=== PATIENT | female | born 1965 | race Caucasian/White ===

== ENCOUNTER → 2023-07-21 16:43 | Outpatient (REF) | payer BC, SELFPAY | LOC: WDC 16:43 | PROVIDERS: ATTENDING PHYSICIAN Obstetrics & Gynecology Gynecology; FAMILY PHYSICIAN Internal Medicine | DX: Z12.31 Encounter for screening mammogram for malignant neoplasm of breast (principal); Z01.419 Encounter for gynecological examination (general) (routine) without abnormal findings | CPT/HCPCS: 77063; 77067 ==

== ENCOUNTER 2024-04-07 11:12 | Emergency (ER) | payer BC, SELFPAY ==
[2024-04-07 11:21] VITALS: BP 142/103
[2024-04-07 11:55] LABS: % Basophils 0.4 % (0-2); % Eosinophils 1.1 % (0-6); % Immature Granulocytes 1.1 % (0-0.5); % Lymphocytes 28.5 % (20.5-51.1); % Monocytes 6.4 % (1.7-9.3); % Neutrophils 62.5 % (42.2-75.2); Absolute Eosinophils 0.1 10^3/uL (0-0.7); Absolute Immature Granulocytes 0.1 10^3/uL (0-0.05); Absolute Lymphocytes 1.5 10^3/uL (1.2-3.4); Absolute Monocytes 0.3 10^3/uL (0.1-0.6); Absolute Neutrophils 3.3 10^3/uL (1.4-6.5); Hematocrit 39.2 % (37.0-47.0); Hemoglobin 13.5 g/dL (12.0-16.0); Mean Corp Hgb Conc. 34.4 g/dL (33.0-37.0); Mean Corpuscular Hgb 31.4 pg (27.0-31.0); Mean Corpuscular Volume 91.2 fL (81.0-99.0); Nucleated Red Blood Cells % 0 %; Platelet Count 305 10^3/uL (130-400); White Blood Cell Count 5.3 10^3/uL (4.8-10.8)
[2024-04-07 12:04] LABS: ALT (SGPT) 21 U/L (0-35); AST (SGOT) 27 U/L (14-36); Albumin 4.6 g/dl (3.5-5.0); Alkaline Phosphatase 83 U/L (38-126); Blood Urea Nitrogen 10 mg/dl (7-17); Calcium 9.4 mg/dl (8.4-10.2); Carbon Dioxide 24 mmol/L (22-30); Chloride 102 mmol/L (98-107); Glucose 178 mg/dl (70-99); Lipase 93 U/L (23-300); Potassium 3.5 mmol/L (3.5-5.1); Sodium 141 mmol/L (135-145); Total Bilirubin 0.8 mg/dl (0.2-1.3); Total Protein 7.2 g/dl (6.3-8.2); eGFR > 60.00
[2024-04-07] MEDS: TORADOL 15 MG IV (12:46)
--- NOTE | 2024-04-07 13:27 | ED.GENMED ---
History of Present Illness
General
Chief Complaint: Abdominal Pain
Time Seen by Provider: 04/07/24 12:06
History of Present Illness
History of Present Illness:
58-year-old female with history of high blood pressure presenting to the emergency department for right-sided abdominal pain. Patient reports symptoms for the past 3 days. She also reports subjective fevers. Pain has been worsening since onset.
She denies nausea without vomiting. She has had decreased appetite. Denies urinary complaints. Reports diarrhea. Notes history of , otherwise denies abdominal surgeries. Denies chest pain or difficulty breathing. Denies additional
acute medical complaint
Past History
Past History
ED Past Medical History: HTN, Other (lumbar stenosis) and Other (Unprovoked DVT)
ED Past Surgical History: and Gynecological (tubal ligation)
Social History
Tobacco: Non-smoker
Alcohol: None
Drug: None
Living: with family
Employment: Employed
Phy Exam
Physical Exam
Physical Exam:
General: Well-appearing, no clinical signs of dehydration, nontoxic and in no acute distress
HEENT: protecting airway
Neck: appears supple
CV: Normal heart rate
Resp: No accessory muscle use, no increased work of breathing
Abd: Soft and non-distended, focal reproducible tenderness to the right lower quadrant. No rebound or guarding
Extremities: No deformities, no swelling
Neuro: alert, no focal neurologic deficit
: deferred
Rectal: deferred
Psych: Normal affect
Skin: Intact
Course
Orders/Labs/Results
Orders:
Orders
04/07/24 11:32
Complete Blood Count/With Diff Urgent
Comprehensive Metabolic Panel Urgent
Lipase Urgent
04/07/24 12:41
CT Abd/pelvis W Iv Cont Urgent
Comment:
Reason For Exam: RKQ pain
Ketorolac [Toradol] 15 mg IV NOW STA
04/07/24 15:42
Amoxicillin 875 mg/Clav 125 mg [Augmentin 875 mg/125 mg] 1 tablet PO NOW STA
Abnormal Lab Results
04/07/24
11:32
MCH 31.4 H pg
(27.0-31.0)
Abs Immat Gran (auto) 0.1 H 10^3/uL
(0-0.05)
Immature Gran % 1.1 H %
(0-0.5)
Glucose 178 H mg/dl
(70-99)
04/07/24 11:32
04/07/24 11:32
Vital Signs
Initial and Last Documented VS:
Initial Vital Signs
Temp
98.9 F
04/07/24 11:20
Last Documented Vital Signs
Temp Pulse Resp BP Pulse Ox
98.9 F 80 18 142/103 100
04/07/24 11:21 04/07/24 11:21 04/07/24 11:21 04/07/24 11:21 04/07/24 11:21
MDM/Problems Addressed
MDM/Problems Addressed:
58-year-old female with history of hypertension presenting for 3 days of right lower quadrant pain which has been worsening in quality. Vital signs on arrival are significant for hypertension.
On exam patient is well-appearing, no acute distress or discomfort. Patient nontoxic. Focal tenderness to the right lower quadrant of the abdomen so cannot safely exclude acute appendicitis. For this reason we will obtain laboratory analysis and
CT abdominal imaging. Toradol administered for pain.
15:40 - CT is consistent with acute diverticulitis, without complicating features. Patient otherwise remains hemodynamically stable. Feel stable for trial of outpatient therapy. Will start on Augmentin. Otherwise feel stable for discharge.
Strict return precautions communicated and patient verbalized understanding
*Critical Care Note
Total Time (30-74mins, 75-104mins- exclusive of procedures): Not Applicable
ED Attending Note
-
Portions of this chart may have been created with voice recognition software.� Occasional wrong word or��sound alike� substitutions may have occurred due to the inherent limitations of voice recognition software.
Discharge Plan
Departure
Prescriptions:
No Action
metoprolol succinate 50 MG tablet extended release 24 hr
100 mg PO DAILY
kfznqzt-yistuosoqmcus-yqusynfr 1 TABLET tablet
2 tab PO PRN PRN (Reason: pain)
cetirizine 10 MG tablet
10 mg PO DAILY
famotidine 20 MG tablet
20 mg PO DAILY
losartan 25 MG tablet
25 mg PO DAILY
spironolactone 50 MG tablet
50 mg PO DAILY
rosuvastatin 10 MG tablet
10 mg PO QPM
duloxetine 60 MG capsule,delayed release(DR/EC)
60 mg PO DAILY
prednisone 10 MG tablet
10 mg PO .TAPER Qty: 45 0RF
Rx Instructions:
Take 50mg daily x3days, 40mg daily x3days,
30mg daily x3days, 20mg daily x3days,
10mg daily x3days
Referrals:
Allen Mckeon MD [Family Provider] -
Interventions
Interventions:
*Risk Screen - Suicide Last Done: 04/07/24 11:21
*General Assessment Last Done: 04/07/24 11:21
*Neglect/Abuse Screening Last Done: 04/07/24 11:21
FB-Ifskev-Tuecsqvpgb Assessment Last Done: 04/07/24 12:56
Discharge Date and Time
Print Language: DANISH
[2024-04-07] MEDS: AUGMENTIN 875 MG/125 MG 1 TABLET PO (15:53)
== END 2024-04-07 16:35 | disposition home or self-care (01) ==
LOC: EMR 11:12
PROVIDERS: Emergency Medicine; EMERGENCY PHYSICIAN Student in an Organized Health Care Education/Training Program; FAMILY PHYSICIAN Internal Medicine
DX: R10.31 Right lower quadrant pain (principal); I10 Essential (primary) hypertension; Z86.718 Personal history of other venous thrombosis and embolism
CPT/HCPCS: 96374; 99284; 74177; 80053; 83690; 85025; Q9967

== ENCOUNTER 2024-04-25 00:16 | Inpatient (IN) | payer BC, SELFPAY ==
[2024-04-24 20:48] VITALS: BP 169/99
--- NOTE | 2024-04-24 21:15 | ED.GENMED ---
History of Present Illness
General
Chief Complaint: Abdominal Pain
Source: patient
Exam Limitations: none
Time Seen by Provider: 04/24/24 20:58
History of Present Illness
History of Present Illness:
This is a 58 year old female that comes in with c/o abd pain. States that she is being treated for Diverticulitis and this is her second round of antibiotics. states that she is taking Augmentin at this time. States that this was ordered by
Zhen. Stats that she is in severe right lower abd pain. States that she was first here on the . States that she has had a fever, abd pain, nausea, diarrhea. Denies any chills, chest pain, SOB, vomiting, headache, dizziness, urinary burning.
Past History
Past History
ED Past Medical History: Asthma, HTN, Other (lumbar stenosis, Diverticulitis, Migraines, Neck pain, Narcolepsy, Chronic bronchitis, Gastritis, Uterine fibroid) and Other (Unprovoked DVT)
ED Past Surgical History: (X2), Gynecological (tubal ligation) and Other (Spinal surgery)
Social History
Tobacco: Non-smoker
Alcohol: None
Drug: None
Personal:
Living: with family
Employment: Employed
Review of Systems
Review of Systems
All Other Systems: ROS reviewed and negative except as documented in HPI and ROS
Constitutional: Reports fever; Denies chills
EENT: Reports no symptoms
Respiratory: Reports no symptoms; Denies cough or trouble breathing
Cardiac: Reports no symptoms; Denies chest pain
ABD/GI: Reports abdominal pain, nausea and diarrhea; Denies vomiting
: Reports no symptoms; Denies dysuria, frequency or urgency
Musculoskeletal: Reports no symptoms
Skin: Reports no symptoms
Neurological: Reports no symptoms; Denies dizzy or headache
Psychiatric: Reports no symptoms
Phy Exam
General Physical Exam
General Presentation: moderate distress
General age: appears stated age
General Skin: warm and dry
General Habitus: normal
General Mental: alert
General Hydration: dry mucous membranes
ENT Exam
ENT Exam: TM's normal, pharynx normal and neck supple
Eye Exam
Eye Exam: EOMI
Cardiovascular Exam
Cardiovascular Exam: regular rate/rhythm, no edema, no murmur and normal peripheral pulses
Pulmonary Exam
Pulmonary Exam: lungs clear, no respiratory distress, no rales, chest non tender, no crackles, no rhonchi, no wheezing and no cough
Gastrointestinal Exam
Gastrointestinal Exam: normal bowel sounds, soft, no organomegaly, no pulsatile mass, non distended and tender (Right lower abd tenderness with palpation)
Musculoskeletal Exam
Musculoskeletal Exam: full ROM and no edema
Skin Exam
Skin Exam: normal color, warm/dry, no rash and no petechia
Psychiatric Exam
Psychiatric Exam: normal mood/affect
Course
Orders/Labs/Results
Orders:
Orders
04/24/24 21:14
0.9% Sodium Chloride 1000 ml [Nss] 1,000 ml IV BOLUS
HYDROmorphone [Dilaudid] 1 mg IV NOW STA
Ondansetron Injectable [Zofran] 4 mg IV NOW STA
04/24/24 21:15
CT Abd/pelvis W Iv Cont Urgent
Comment:
Reason For Exam: Right sided abd pain
04/24/24 21:27
Complete Blood Count/With Diff Urgent
Comprehensive Metabolic Panel Urgent
Lactic Acid Urgent
Lipase Urgent
Abnormal Lab Results
04/24/24
21:27
RBC 4.13 L 10^6/uL
(4.20-5.40)
MCH 32.2 H pg
(27.0-31.0)
Absolute Neuts (auto) 7.7 H 10^3/uL
(1.4-6.5)
Absolute Monos (auto) 0.7 H 10^3/uL
(0.1-0.6)
Neutrophils % 77.8 H %
(42.2-75.2)
Lymphocytes % 13.1 L %
(20.5-51.1)
Glucose 104 H mg/dl
(70-99)
04/24/24 21:27
04/24/24 21:27
glucose nonfasting. Lactic acid normal at 1.1, Lipase normal at 47
Vital Signs
Initial and Last Documented VS:
Initial Vital Signs
Temp Pulse Resp BP Pulse Ox
99.7 F 81 18 169/99 98
04/24/24 20:48 04/24/24 20:48 04/24/24 20:48 04/24/24 20:48 04/24/24 20:48
Last Documented Vital Signs
Temp Pulse Resp BP Pulse Ox
99.7 F 81 18 169/99 98
04/24/24 20:48 04/24/24 20:48 04/24/24 20:48 04/24/24 20:48 04/24/24 20:48
MDM/Problems Addressed
Differential Diagnosis Includes:
Appendicitis. diverticulitis with abscess
MDM/Problems Addressed:
This is a 58 year old female that comes in with c/o increased abd pain in the right lower abd. States that she has been on Antibiotics and this is the second Round.
Will check labs, give IV medication and IV fluids and get CT scan.
Back into see patient. Explained that her CT shows worsening of the Diverticulitis but there is no free fluid or perforation. Will admit patient for IV antibiotics Hospitalist notified.
Chronic conditions affecting care:
Diverticulitis,
Acute Exacerbation and/or Progression of Chronic Illness:
Diverticulitis
*Radiology
Radiology exam reviewed: radiology read reviewed (CT-Persistent and progressive mild to moderate sigmoid diverticulitis. No perforation or abscess. The appendix is normal. No bowel obstruction. No obstructive uropathy. )
*Pulse Oximetry
Patient hypoxic: no
*EKG
Interpreted by ED Provider?: NA
Rate: EKG- N/A
*Rn First Assistant Interpretation
Rate: Rn First Assistant- N/A
*Critical Care Note
Total Time (30-74mins, 75-104mins- exclusive of procedures): Not Applicable
ED Attending Note
-
Portions of this chart may have been created with voice recognition software.� Occasional wrong word or��sound alike� substitutions may have occurred due to the inherent limitations of voice recognition software.
Discharge Plan
Departure
Patient Disposition: Admit
Date of Disposition: 04/24/24
Time of Disposition: 23:14
Admit to: Med/Surg
Presentation/result/management discussed w/ accepting MD/DO: Hospitalist
Patient with high blood pressure during this ER visit?: Yes
Condition: Good
Covid-19: Not Applicable
Discharge Problem:
Abdominal pain, Diverticulitis
Prescriptions:
No Action
metoprolol succinate 50 MG tablet extended release 24 hr
100 mg PO DAILY
ahwvekz-lddqdtuhnlxwx-dvknbidq 1 TABLET tablet
2 tab PO PRN PRN (Reason: pain)
cetirizine 10 MG tablet
10 mg PO DAILY
famotidine 20 MG tablet
20 mg PO DAILY
losartan 25 MG tablet
25 mg PO DAILY
spironolactone 50 MG tablet
50 mg PO DAILY
rosuvastatin 10 MG tablet
10 mg PO QPM
duloxetine 60 MG capsule,delayed release(DR/EC)
60 mg PO DAILY
prednisone 10 MG tablet
10 mg PO .TAPER Qty: 45 0RF
Rx Instructions:
Take 50mg daily x3days, 40mg daily x3days,
30mg daily x3days, 20mg daily x3days,
10mg daily x3days
amoxicillin-pot clavulanate 875-125 mg tablet
1 tab PO BID 10 Days Qty: 20 0RF
Referrals:
Allen Mckeon MD [Family Provider] -
Interventions
Interventions:
*Risk Screen - Suicide Last Done: 04/24/24 20:48
*General Assessment Last Done: 04/24/24 20:48
*Neglect/Abuse Screening Last Done: 04/24/24 20:48
ED- Fall Risk Assessment Last Done: 04/24/24 21:41
*ED COVID-19 Vaccine History Last Done: 04/24/24 21:35
JS-Kzrkxu-Jesequypym Assessment Last Done: 04/24/24 21:41
Discharge Date and Time
Print Language: KHMER
[2024-04-24] MEDS: DILAUDID 1 MG IV ×2 (21:34→23:19)
[2024-04-24] MEDS: NSS 1000 IV (21:34)
[2024-04-24] MEDS: ZOFRAN 4 MG IV (21:34)
[2024-04-24 21:35] VITALS: BMI 35.5
[2024-04-24 21:42] LABS: % Basophils 0.4 % (0-2); % Immature Granulocytes 0.3 % (0-0.5); % Lymphocytes 13.1 % (20.5-51.1); % Monocytes 7.4 % (1.7-9.3); % Neutrophils 77.8 % (42.2-75.2); Absolute Eosinophils 0.1 10^3/uL (0-0.7); Absolute Lymphocytes 1.3 10^3/uL (1.2-3.4); Absolute Monocytes 0.7 10^3/uL (0.1-0.6); Absolute Neutrophils 7.7 10^3/uL (1.4-6.5); Hematocrit 40.1 % (37.0-47.0); Hemoglobin 13.3 g/dL (12.0-16.0); Mean Corp Hgb Conc. 33.2 g/dL (33.0-37.0); Mean Corpuscular Hgb 32.2 pg (27.0-31.0); Mean Corpuscular Volume 97.1 fL (81.0-99.0); Nucleated Red Blood Cells % 0 %; Platelet Count 253 10^3/uL (130-400); Red Blood Cell Count 4.13 10^6/uL (4.20-5.40); Red Cell Dist. Width 13.1 % (11.5-14.5); White Blood Cell Count 9.9 10^3/uL (4.8-10.8)
[2024-04-24 21:56] LABS: Lactic Acid 1.1 mmol/L (0.7-2.0)
[2024-04-24 21:58] LABS: ALT (SGPT) 33 U/L (0-35); AST (SGOT) 33 U/L (14-36); Albumin 4.5 g/dl (3.5-5.0); Alkaline Phosphatase 86 U/L (38-126); Blood Urea Nitrogen 8 mg/dl (7-17); Carbon Dioxide 26 mmol/L (22-30); Chloride 101 mmol/L (98-107); Estimated Creatinine Clearance 84 ml/min; Glucose 104 mg/dl (70-99); Lipase 47 U/L (23-300); Potassium 4.3 mmol/L (3.5-5.1); Sodium 137 mmol/L (135-145); Total Bilirubin 0.7 mg/dl (0.2-1.3); Total Protein 6.9 g/dl (6.3-8.2); eGFR > 60.00
[2024-04-24] MEDS: LEVAQUIN 100 IV (23:19)
--- NOTE | 2024-04-24 23:29 | EDRN ---
Patient ambulated to the bathroom and back in bed and complained of pain increasing, informed ridge boyd who placed meds to be given and placed patient in for admission, patient aware and medicated.
[2024-04-24 23:52] VITALS: BP 129/87
--- NOTE | 2024-04-25 00:13 | EDRN ---
hospitalist at bedside working on admission
--- NOTE | 2024-04-25 00:18 | HPS.HSE ---
Family Physician
-
Family Physician: Allen Mckeon
Chief Complaint
-
Abdominal pain
History of Present Illness
Patient is a 58-year-old with past medical history significant for hypertension, hyperlipidemia, chloroquine status post spinal surgery presenting to the emergency department with recurrent abdominal pain.
Patient was full seen in the emergency department on April 07 for abdominal pain and was diagnosed with acute diverticulitis at that time. She has sigmoid diverticulitis, uncomplicated and was started on Augmentin. She took 10 days of Augmentin
which ended on April 17. She felt well while she was on Augmentin however post antibiotics the patient symptoms started to recall. She reported abdominal pain and ongoing diarrhea. She received another round of 10 days of Augmentin per her
director state pharmacy however while taking the medications the patient had no improvement in symptoms. She is intermittently tolerating p.o. but continued to have diarrhea and abdominal pain with nausea but no vomiting. She states she had low-grade
temps for her. No chills. She has not felt dizzy or lightheaded. Patient is pending an outpatient colonoscopy for a positive Cologuard screening.
In the emergency department she was hemodynamically stable with a temp of 99.7, blood pressure of 130/87 and pulse of 84. White count was 9 with the rest of the CBC normal. Electrolytes BUN/creatinine were within normal range. She had a CT of the
abdomen pelvis showing persistent and progressive mild to moderate sigmoid diverticulitis without perforation or abscess.
Medical History
Past Medical History
Past Medical History: Reports HTN and Hypercholesterolemia
Past Surgical History: Reports , Gynocological and Orthopedic (Back surgery)
Social History
Tobacco: Non-smoker
Alcohol: None
Drug: None
Personal:
Living: With Family
Employment: Employed
Family History
Family History: Not pertinent
Allergies / Home Medications
Allergies reflects when Allergies were last updated in [facility].
Home Medications with original date entered in [facility]
Allergy/Medication List:
Allergies
Allergy/AdvReac Type Severity Reaction Status Date / Time
topiramate [From Topamax] Allergy Intermediate Unknown Verified 04/07/24 11:24
tetracycline Allergy FULL BODY Verified 04/07/24 11:24
RASH
cats Allergy runny nose Uncoded 11/14/21 14:55
seasonal Allergy runny nose Uncoded 11/14/21 14:55
Home Medications
unolned-xkrqoifgoovde-bkvfdgfy 250 mg-250 mg-65 mg tablet 2 tab PO PRN PRN pain 09/18/14
metoprolol succinate 50 mg tablet,extended release 24 hr 100 mg PO DAILY 09/18/14
cetirizine 10 mg tablet 10 mg PO DAILY 11/14/21
duloxetine 60 mg capsule,delayed release 60 mg PO DAILY 11/14/21
famotidine 20 mg tablet 20 mg PO DAILY 11/14/21
losartan 25 mg tablet 25 mg PO DAILY 11/14/21
prednisone 10 mg tablet 10 mg PO .TAPER #45 tabs 11/14/21
rosuvastatin 10 mg tablet 10 mg PO QPM 11/14/21
spironolactone 50 mg tablet 50 mg PO DAILY 11/14/21
amoxicillin 875 mg-potassium clavulanate 125 mg tablet 1 tab PO BID 10 days #20 tabs 04/07/24
Review of Systems
-
Constitutional: Reports Fever
EENT: Reports No Symptoms
Respiratory: Reports No Symptoms
Cardiac: Reports No Symptoms
Abdomen/GI: Reports Abdominal Pain, Nausea and Diarrhea
: Reports No Symptoms
Musculoskeletal: Reports No Symptoms
Skin: Reports No Symptoms
Neurological: Reports No Symptoms
Endocrine: Reports No Symptoms
Hematologic/Lymphatic: Reports No Symptoms
Psych: Reports No Symptoms
Physical Exam
Vital Signs
Vital Signs
Temp Pulse Resp BP Pulse Ox
99.7 F 84 16 129/87 98
04/24/24 20:48 04/24/24 23:52 04/24/24 23:52 04/24/24 23:52 04/24/24 23:52
Physical Exam
General: Well Developed, Well Nourished, Comfortable and Conversant
HEENT: NormoCephalic, Anicteric, Moist mucous membranes and Atraumatic
Respiratory: Clear
Cardiac: S1/S2 and Regular Rhythm
Breast: Deferred by me
GI: Soft, Non Distended, Normal Bowel Sounds and Tender
Rectal: Deferred by Provider
Genito-urinary: Deferred by me
Musculoskeletal: No Clubbing, No Cyanosis and No Edema
Skin: Warm
Neuro: AO x 3
Hematologic/Lymphatic: No Lymphadenopathy
Psych: Calm
Laboratory Results
-
04/24/24 21:27
04/24/24 21:27
Laboratory Results
Lactic Acid 1.1 mmol/L (0.7-2.0) 04/24/24 21:27
Total Bilirubin 0.7 mg/dl (0.2-1.3) 04/24/24 21:27
AST 33 U/L (14-36) 04/24/24 21:27
ALT 33 U/L (0-35) 04/24/24 21:27
Alkaline Phosphatase 86 U/L (38-126) 04/24/24 21:27
Lipase 47 U/L (23-300) 04/24/24 21:27
Data Reviewed
-
CT Scan: Report Reviewed by me
Lab Data: Labs Reviewed by me
Old Records: Reviewed
Impression/Plan
-
IMPRESSION:
58-year-old with recurrent persistent sigmoid diverticulitis, noncomplicated status post 2 rounds of 10 days of Augmentin. She is currently well-appearing hemodynamically stable and nontoxic. Afebrile, no leukocytosis. CT scan shows progression
of mild to moderate diverticulitis.
PLAN:
Diverticulitis
- admit to med/surg
- clear liquid diet
- continue levofloxacin 750mg daily w/ flagyl 500 q 8
- pain control and antiemetics
- IV fluids as patient has been having diarrhea.
HTN - she has remained hemodynamically stable and not dehydrated
- continue home metoprolol 100, losartan 25 and spironolactone 50
DVT PPX - lovenox sq
Code status - Full code
[2024-04-25] MEDS: FLAGYL 500 MG 100 IV ×4 (00:30→23:20)
[2024-04-25 01:05] VITALS: BP 121/89; BMI 34.9
[2024-04-25] MEDS: DILAUDID 0.5 MG IV ×6 (01:19→21:07)
[2024-04-25] MEDS: LR 1000 IV ×2 (01:19→12:15)
--- NOTE | 2024-04-25 02:20 | PTCARENOTE ---
Patient arrived to unit via stretcher around 00:15 with dx of diverticulitis. Pt AAOX3. Pleasant and cooperative with care. Pain to RLQ 10. Lungs clear. Skin intact. Oriented to unit. Call silva within reach. Patient education on using call silva
for assist out of bed.
[2024-04-25] MEDS: ZOFRAN 4 MG IV (04:29)
[2024-04-25 07:51] VITALS: BP 109/61
[2024-04-25] MEDS: CYMBALTA DELAYED RELEASE 60 MG PO (08:06)
[2024-04-25] MEDS: ZYRTEC 10 MG PO (08:07)
[2024-04-25] MEDS: TOPROL XL 100 MG PO (08:07)
[2024-04-25] MEDS: PEPCID 20 MG PO (08:07)
[2024-04-25] MEDS: ALDACTONE 50 MG PO (08:08)
[2024-04-25] MEDS: COZAAR 25 MG PO (08:08)
[2024-04-25 08:10] LABS: Hematocrit 37.3 % (37.0-47.0); Mean Corp Hgb Conc. 32.2 g/dL (33.0-37.0); Mean Corpuscular Hgb 31.8 pg (27.0-31.0); Mean Corpuscular Volume 98.9 fL (81.0-99.0); Mean Platelet Volume 9.3 fL (7.4-10.4); Platelet Count 241 10^3/uL (130-400); Red Blood Cell Count 3.77 10^6/uL (4.20-5.40); Red Cell Dist. Width 13.4 % (11.5-14.5); White Blood Cell Count 10.9 10^3/uL (4.8-10.8)
[2024-04-25 08:40] LABS: Blood Urea Nitrogen 7 mg/dl (7-17); Calcium 8.4 mg/dl (8.4-10.2); Carbon Dioxide 28 mmol/L (22-30); Chloride 98 mmol/L (98-107); Estimated Creatinine Clearance 83 ml/min; Glucose 105 mg/dl (70-99); Magnesium 1.4 mg/dl (1.6-2.3); Potassium 4.5 mmol/L (3.5-5.1); Sodium 137 mmol/L (135-145); eGFR > 60.00
--- NOTE | 2024-04-25 10:10 | CM ---
Pt seen bedside. Initial assessment completed. CM explained role in the hospital
Pt lives w/ spouse in a 2STH-4 steps to enter the home.
Pt is independent, denies DME use for ambulating or daily functioning
Denies SNF/PT/VN hx. Pt stated she engaged in OP rehab at [facility] center previously.
Denies financial insecurities
Address, point of contact and insurance verified.
PCP: Dr. Allen Mckeon
Pharmacy: [facility]
Per pt, her spouse will transport at d/c
Plan: Home, no anticipated needs
--- NOTE | 2024-04-25 12:14 | W.PN.HOSP.TC ---
Today's Communication/Plan
-
see bold
Assessment / Plan
Assessment / Plan
58-year-old with recurrent persistent sigmoid diverticulitis, noncomplicated status post 2 rounds of 10 days of Augmentin. She is currently well-appearing hemodynamically stable and nontoxic. Afebrile, no leukocytosis. CT scan shows progression
of mild to moderate diverticulitis.
Gen: NAD, AAOx3.
Eyes: EOMI, PERRLA, no scleral icterus.
Neck: supple.
CV: RRR, +S1/S2, no m/r/g.
Resp: CTAB, no rales, wheezes, or rhonchi.
Abd: +BS, soft, RLQ TTP, ND
Skin: No rashes.
Neuro: CN 2-12 intact, non-focal.
Psych: Normal mood and affect.
Acute diverticulitis:
-cont Levaquin/Flagyl
-clears
-pain control and antiemetics
-IVFs
Essential HTN:
-cont BB/losartan/spironolactone with holding parameters
Obesity due to excess calories
FULL/Lovenox
Anticipated Discharge: 24 - 48 hours
Subjective/Interval History
-
Date of Service: April 25, 2024
c/o RLQ pain.
Objective Data
-
Labs:
Laboratory Results
04/25/24
06:41
WBC 10.9 H
Hgb 12.0
Hct 37.3
Plt Count 241
Sodium 137
Potassium 4.5
Chloride 98
Carbon Dioxide 28
BUN 7
Creatinine 0.8
Glucose 105 H
Calcium 8.4
Vital Signs:
Vital Signs
Temp Pulse Resp BP Pulse Ox
99.9 F 80 20 109/61 96
04/25/24 07:51 04/25/24 08:07 04/25/24 07:51 04/25/24 08:07 04/25/24 08:00
I&O
04/24/24 04/25/24 04/26/24
06:59 06:59 06:59
Intake Total 1700 / 1700
Balance 1700 / 1700
[2024-04-25] MEDS: TYLENOL 650 MG PO ×3 (12:20→21:07)
[2024-04-25 15:45] VITALS: BP 101/64
[2024-04-25] MEDS: LOVENOX 40 MG SC (17:44)
[2024-04-25] MEDS: MIRALAX 17 GRAMS PO (17:44)
[2024-04-25] MEDS: CRESTOR 10 MG PO (17:45)
--- NOTE | 2024-04-25 18:18 | PTCARENOTE ---
Patient reporting abd discomfort and feeling like bladder isn't completely empty after voids, requesting to have IVF paused as she feels that is contributing to it. PVR 5ml. Pt also complaining of constipation (LBM 04/24). PRN Miralax given.
Educated pt that it does not appear she is retaining urine and the IVF may help her to pass a BM and prevent dehydration. Pt stating that she is 'puffy' and does not want the fluids running at this time. Fluids paused, will pass on to tire mold tester
nurse. Plan of care ongoing.
[2024-04-25] MEDS: AMBIEN 10 MG PO (21:02)
[2024-04-25] MEDS: LR IV (21:45)
[2024-04-25] MEDS: LEVAQUIN 150 IV (21:46)
[2024-04-25 23:41] VITALS: BP 106/57
[2024-04-26] MEDS: DILAUDID 0.5 MG IV ×4 (00:32→19:07)
[2024-04-26 07:41] VITALS: BP 110/59
[2024-04-26] MEDS: COZAAR 25 MG PO (08:40)
[2024-04-26] MEDS: PEPCID 20 MG PO (08:40)
[2024-04-26] MEDS: FLAGYL 500 MG 100 IV ×3 (08:41→23:51)
[2024-04-26] MEDS: TOPROL XL 100 MG PO (08:41)
[2024-04-26] MEDS: ALDACTONE 50 MG PO (08:41)
[2024-04-26] MEDS: ZYRTEC 10 MG PO (08:41)
[2024-04-26] MEDS: CYMBALTA DELAYED RELEASE 60 MG PO (08:41)
[2024-04-26] MEDS: TYLENOL 650 MG PO ×2 (08:51→14:54)
[2024-04-26] MEDS: LR IV (08:54)
--- NOTE | 2024-04-26 09:46 | W.PN.HOSP.TC ---
Today's Communication/Plan
-
see bold
Assessment / Plan
Assessment / Plan
58-year-old with recurrent persistent sigmoid diverticulitis, noncomplicated status post 2 rounds of 10 days of Augmentin. She is currently well-appearing hemodynamically stable and nontoxic. Afebrile, no leukocytosis. CT scan shows progression
of mild to moderate diverticulitis.
Gen: NAD, AAOx3.
Eyes: EOMI, PERRLA, no scleral icterus.
Neck: supple.
CV: remains RRR, +S1/S2, no m/r/g.
Resp: remains CTAB, no rales, wheezes, or rhonchi.
Abd: +BS, soft, RLQ TTP (slightly improved from yesterday), ND
Skin: No rashes.
Neuro: CN 2-12 intact, non-focal.
Psych: Normal mood and affect.
CT A/P: Persistent and progressive mild to moderate sigmoid diverticulitis. No perforation or abscess. The appendix is normal. No bowel obstruction. No obstructive uropathy.
Acute diverticulitis:
-cont Levaquin/Flagyl
-clears
-pain control and antiemetics
Essential HTN:
-cont BB/losartan/spironolactone with holding parameters
Obesity due to excess calories
FULL/Lovenox
Anticipated Discharge: 24 - 48 hours
Subjective/Interval History
-
Date of Service: April 26, 2024
No new complaints.
Objective Data
-
Vital Signs:
Vital Signs
Temp Pulse Resp BP Pulse Ox
99.9 F 82 20 110/59 91
04/26/24 07:41 04/26/24 07:41 04/26/24 07:41 04/26/24 07:41 04/26/24 07:41
I&O
04/25/24 04/26/24 04/27/24
06:59 06:59 06:59
Intake Total 1700 / 1700 2990 / 2990
Balance 1700 / 1700 2990 / 2990
--- NOTE | 2024-04-26 10:20 | VATNOTE ---
right AC PIV removed overnight by scale clerk VAT staff. pt requested d/t irritation/discomfort.
[2024-04-26 15:05] VITALS: BP 95/52
[2024-04-26] MEDS: LOVENOX 40 MG SC (17:28)
[2024-04-26] MEDS: CRESTOR 10 MG PO (17:28)
[2024-04-26] MEDS: LEVAQUIN 150 IV (21:05)
[2024-04-26] MEDS: AMBIEN 10 MG PO (21:05)
[2024-04-26 23:06] VITALS: BP 104/60
[2024-04-27] MEDS: TYLENOL 650 MG PO ×3 (01:03→15:41)
--- NOTE | 2024-04-27 04:05 | DOWNTIME ---
There was a [employer] Client [employer] Worker Downtime on 04/27/2024 from 0100 to 04/27/2024 at 0350. Downtime documentation of patient's care, including medication administrations, has been reconciled in the electronic record per guidelines. Refer to the
patient's paper chart under the miscellaneous tab to see printed paper medication records and downtime forms.
[2024-04-27 07:00] VITALS: BP 115/76
[2024-04-27] MEDS: DILAUDID 0.5 MG IV ×4 (07:23→21:14)
[2024-04-27] MEDS: ALDACTONE 50 MG PO (08:37)
[2024-04-27] MEDS: PEPCID 20 MG PO (08:37)
[2024-04-27] MEDS: CYMBALTA DELAYED RELEASE 60 MG PO (08:38)
[2024-04-27] MEDS: TOPROL XL 100 MG PO (08:38)
[2024-04-27] MEDS: FLAGYL 500 MG 100 IV ×2 (08:38→15:33)
[2024-04-27] MEDS: ZYRTEC 10 MG PO (08:38)
[2024-04-27] MEDS: COZAAR 25 MG PO (08:38)
--- NOTE | 2024-04-27 09:27 | W.PN.HOSP.TC ---
Today's Communication/Plan
-
see bold
Assessment / Plan
Assessment / Plan
58-year-old with recurrent persistent sigmoid diverticulitis, noncomplicated status post 2 rounds of 10 days of Augmentin. She is currently well-appearing hemodynamically stable and nontoxic. Afebrile, no leukocytosis. CT scan shows progression
of mild to moderate diverticulitis.
Gen: NAD, AAOx3.
Eyes: EOMI, PERRLA, no scleral icterus.
Neck: supple.
CV: continues to remain RRR, +S1/S2, no m/r/g.
Resp: continues to remain CTAB, no rales, wheezes, or rhonchi.
Abd: +BS, soft, RLQ TTP (slightly improved from yesterday but pt just received analgesic), ND
Skin: No rashes.
Neuro: CN 2-12 intact, non-focal.
Psych: Normal mood and affect.
CT A/P: Persistent and progressive mild to moderate sigmoid diverticulitis. No perforation or abscess. The appendix is normal. No bowel obstruction. No obstructive uropathy.
Acute diverticulitis:
-cont Levaquin/Flagyl
-clears
-pain control and antiemetics
-CRS following
Essential HTN:
-cont BB/losartan/spironolactone with holding parameters
Obesity due to excess calories
FULL/Lovenox
Anticipated Discharge: > 48 hours
Subjective/Interval History
-
Date of Service: April 27, 2024
Abdominal pain slightly improved from yesterday.
Objective Data
-
Vital Signs:
Vital Signs
Temp Pulse Resp BP Pulse Ox
99.7 F 73 18 115/76 96
04/26/24 23:06 04/26/24 23:06 04/26/24 23:06 04/27/24 08:37 04/26/24 23:06
I&O
04/26/24 04/27/24 04/28/24
06:59 06:59 06:59
Intake Total 2990 / 2990 2270 / 2270
Balance 2990 / 2990 2270 / 2270
--- NOTE | 2024-04-27 11:48 | CON.CRS ---
Consultation
-
Date/Time Consultation Requested: 04/27/2024, 08:01
Date/Time Consultation Performed: 04/27/2024, 08:45
Requesting Provider: Korey Coyle MD
Performing Provider: Willy Tripathi MD
Reason for Consultation: diverticulitis
Medical History
-
Chief Complaint: abdominal pain
History of Present Illness:
58-year-old female presents to [facility] on 04/25/2024 complaining of abdominal pain. The patient had been seen in our ER on 04/07/2024 for similar pain and was diagnosed with sigmoid diverticulitis and discharged from the ER with an
outpatient course of Augmentin. She states that she improved with the antibiotics but as soon as she stopped the course, the pain came back more severe. It started about 5 days ago. She denies nausea or vomiting. She has had loose stools for
about 1 month. She has not been eating solid foods much in the past several weeks. Her stools are nonbloody. This is her first attack of sigmoid diverticulitis. She has not had a previous colonoscopy. She had a recent positive Cologuard and is
scheduled for colonoscopy in the future. She has a history of unprovoked DVTs and failed Xarelto. Her prior abdominal surgeries include 2 C-sections and a tubal ligation.
Her initial white blood cell count was 10.9 and she has not had blood work since. CT of the abdomen and pelvis shows persistent and progressive mild to moderate sigmoid diverticulitis with no perforation or abscess. She was started on Levaquin and
Flagyl. Given these findings, we have been consulted for further surgical opinion.
Past Medical History
Past Medical History: HTN and Hypercholesterolemia
Past Surgical History: , Gynecological and Orthopedic
Social History
Tobacco: Non-Smoker
Alcohol: None
Drug: None
Personal:
Family History
Family History: Reviewed & Not Pertinent
Allergies / Home Medications
Allergy/AdvReac Type Severity Reaction Status Date / Time
topiramate [From Topamax] Allergy Intermediate Unknown Verified 04/07/24 11:24
tetracycline Allergy FULL BODY Verified 04/07/24 11:24
RASH
cats Allergy runny nose Uncoded 11/14/21 14:55
seasonal Allergy runny nose Uncoded 11/14/21 14:55
�Medication �Instructions �Recorded �Confirmed �Type
glezyjv-doczondfejbww-fcwrftoh 250 2 tab PO DAILY Headache 09/18/14 04/25/24 History
mg-250 mg-65 mg tablet
metoprolol succinate 50 mg 100 mg PO DAILY Blood Pressure 09/18/14 04/25/24 History
tablet,extended release 24 hr
cetirizine 10 mg tablet 10 mg PO DAILY Allergies 11/14/21 04/25/24 History
duloxetine 60 mg capsule,delayed 60 mg PO DAILY Depression 11/14/21 04/25/24 History
release
famotidine 20 mg tablet 20 mg PO DAILY Gastrointestinal 11/14/21 04/25/24 History
Issue
losartan 25 mg tablet 25 mg PO DAILY Blood Pressure 11/14/21 04/25/24 History
rosuvastatin 10 mg tablet 10 mg PO DAILY High Cholesterol 11/14/21 04/25/24 History
spironolactone 50 mg tablet 50 mg PO DAILY Fluid 11/14/21 04/25/24 History
Retention/Swelling
amoxicillin 875 mg-potassium 1 tab PO BID 10 days #20 tabs 04/07/24 04/25/24 Rx
clavulanate 125 mg tablet
zolpidem 10 mg tablet (Ambien) 10 mg PO HS Sleep 04/25/24 04/25/24 History
Review of Systems
-
History Source: Patient
Abdomen/GI: Abdominal Pain and Diarrhea
A 10 point review of systems was completed, and was negative except as per HPI.
Physical Exam
Vital Signs
Temp 98.6 F 04/27/24 07:00
Pulse 73 04/27/24 07:00
Resp Rate 19 04/27/24 07:00
Blood pressure 115/76 04/27/24 08:37
SaO2 96 04/27/24 07:00
Body Mass Index (BMI) 34.9
Lab Results / Allergies
04/25/24 06:41
04/25/24 06:41
WBC 10.9 10^3/uL (4.8-10.8) H 04/25/24 06:41
Hgb 12.0 g/dL (12.0-16.0) 04/25/24 06:41
Hct 37.3 % (37.0-47.0) 04/25/24 06:41
Plt Count 241 10^3/uL (130-400) 04/25/24 06:41
Abs Immat Gran (auto) 0.0 10^3/uL (0-0.05) 04/24/24 21:27
Neutrophils % 77.8 % (42.2-75.2) H 04/24/24 21:27
Allergy/AdvReac Type Severity Reaction Status Date / Time
topiramate [From Topamax] Allergy Intermediate Unknown Verified 04/07/24 11:24
tetracycline Allergy FULL BODY Verified 04/07/24 11:24
RASH
cats Allergy runny nose Uncoded 11/14/21 14:55
seasonal Allergy runny nose Uncoded 11/14/21 14:55
Physical Exam
General: Well Developed, Well Nourished and No Apparent Distress
GI: Soft, Tender (Suprapubic/right lower quadrant moderate) and Distended (Mild)
Skin: Warm and Dry
Neuro: AO x 3
Psych: Calm
Data Reviewed
-
CT Scan: Image Personally Visualized and interpreted, Report Reviewed by me and Discussed with Patient
Labs: Labs Reviewed by me, Discussed with Physician and Discussed with Patient
Old Records: Reviewed
Assessment / Plan
-
Assessment: 58-year-old female with uncomplicated sigmoid diverticulitis, first attack
-Continue on clears today given her pain
-Trend blood work
-Discontinue bowel regimen
-Continue IV antibiotics
-Discussed CT with patient. If she were to worsen she would require a colectomy with colostomy creation.
-She will need an eventual colonoscopy in several weeks
--- NOTE | 2024-04-27 14:54 | CM ---
Chart reviewed. Plan of care ongoing.
CRS following
CM will cont to follow for d/c planning
Plan: Home; no anticipated needs
[2024-04-27 15:00] VITALS: BP 121/68
[2024-04-27 15:52] LABS: C-Reactive Protein < 5.00 mg/L (0.0-10.00)
[2024-04-27] MEDS: LOVENOX 40 MG SC (17:25)
[2024-04-27] MEDS: CRESTOR 10 MG PO (17:26)
[2024-04-27] MEDS: LEVAQUIN 150 IV (21:14)
[2024-04-27] MEDS: AMBIEN 10 MG PO (21:14)
[2024-04-27 23:15] VITALS: BP 131/82
[2024-04-28] MEDS: FLAGYL 500 MG 100 IV ×3 (00:27→15:35)
[2024-04-28] MEDS: DILAUDID 0.5 MG IV ×5 (02:03→21:01)
[2024-04-28 06:37] LABS: Blood Urea Nitrogen 6 mg/dl (7-17); Calcium 8.5 mg/dl (8.4-10.2); Carbon Dioxide 28 mmol/L (22-30); Chloride 101 mmol/L (98-107); Estimated Creatinine Clearance 95 ml/min; Glucose 91 mg/dl (70-99); Sodium 138 mmol/L (135-145); eGFR > 60.00
[2024-04-28 07:00] VITALS: BP 103/66
[2024-04-28 07:55] LABS: Hemoglobin 10.6 g/dL (12.0-16.0); Mean Corp Hgb Conc. 32.1 g/dL (33.0-37.0); Mean Corpuscular Volume 99.7 fL (81.0-99.0); Mean Platelet Volume 8.9 fL (7.4-10.4); Platelet Count 201 10^3/uL (130-400); Red Blood Cell Count 3.31 10^6/uL (4.20-5.40); Red Cell Dist. Width 13.3 % (11.5-14.5); White Blood Cell Count 6.9 10^3/uL (4.8-10.8)
[2024-04-28] MEDS: ZYRTEC 10 MG PO (08:07)
[2024-04-28] MEDS: PEPCID 20 MG PO (08:07)
[2024-04-28] MEDS: CYMBALTA DELAYED RELEASE 60 MG PO (08:07)
[2024-04-28] MEDS: COZAAR 25 MG PO (08:08)
[2024-04-28] MEDS: TOPROL XL 100 MG PO (08:08)
[2024-04-28] MEDS: ALDACTONE 50 MG PO (08:08)
--- NOTE | 2024-04-28 08:28 | W.PN.HOSP.TC ---
Today's Communication/Plan
-
See bold
Assessment / Plan
Assessment / Plan
Gen: Remains NAD, AAOx3.
Eyes: Remains EOMI, PERRLA, no scleral icterus.
Neck: supple.
CV: RRR, +S1/S2, no m/r/g.
Resp: CTAB, no rales, wheezes, or rhonchi.
Abd: +BS, soft, RLQ TTP, ND
Skin: No rashes.
Neuro: CN 2-12 intact, non-focal.
Psych: Normal mood and affect.
CT A/P: Persistent and progressive mild to moderate sigmoid diverticulitis. No perforation or abscess. The appendix is normal. No bowel obstruction. No obstructive uropathy.
Acute diverticulitis:
-cont Levaquin/Flagyl
-clears
-pain control and antiemetics
-CRS following, no surgery indicated at this time
-Of note, C. difficile negative
Essential HTN:
-cont BB/losartan/spironolactone with holding parameters
Obesity due to excess calories
FULL/Lovenox
Anticipated Discharge: > 48 hours
Subjective/Interval History
-
Date of Service: April 28, 2024
Patient reports abdominal pain is slightly improved from yesterday.
Objective Data
-
Labs:
Laboratory Results
04/28/24 04/28/24
06:00 07:43
WBC Cancelled 6.9
Hgb Cancelled 10.6 L
Hct Cancelled 33.0 L
Plt Count Cancelled 201
Sodium 138
Potassium 4.0
Chloride 101
Carbon Dioxide 28
BUN 6 L
Creatinine 0.7
Glucose 91
Calcium 8.5
Vital Signs:
Vital Signs
Temp Pulse Resp BP Pulse Ox
98.7 F 72 18 103/66 93
04/28/24 07:00 04/28/24 08:08 04/28/24 07:00 04/28/24 08:08 04/28/24 07:00
I&O
04/27/24 04/28/24 04/29/24
06:59 06:59 06:59
Intake Total 2270 / 2270 1080 / 1080
Balance 2270 / 2270 1080 / 1080
[2024-04-28] MEDS: NSS 1000 IV ×2 (09:15→18:21)
--- NOTE | 2024-04-28 10:57 | W.PN.CRS1 ---
Today's Communication / Plan
-
Fulls.
Assessment/Plan
-
Sigmoid diverticulitis.
1. Afebrile. WBC down to 6.9. Continue antibiotics.
2. tolerated clears. Go to fulls.
3. hopefully LRD and home tomorrow.
Subjective Data
Subjective Data
Date of Service: April 28, 2024
Less pain.
Tolerated clears.
Objective Data
-
Vital Signs
Temp Pulse Resp BP Pulse Ox
98.7 F 72 18 103/66 93
04/28/24 07:00 04/28/24 08:08 04/28/24 07:00 04/28/24 08:08 04/28/24 07:00
Intake & Output
04/27/24 04/28/24 04/29/24
06:59 06:59 06:59
Intake Total 2270 / 2270 1080 / 1080
Balance 2270 / 2270 1080 / 1080
Intake:
Oral fluids 0 / 1920 1080 / 1080
IV piggybacks 350 / 350
Other:
Number of approximated MODERATE 3 2
amounts of urine
Lab Results
04/28/24 07:43
04/28/24 06:00
Physical Exam
-
General: No Acute Distress
Chest: Clear
Cardiovascular: Regular Rate & Rhythm
Abdomen: Non Distended and Tender (mild)
[2024-04-28] MEDS: TYLENOL 650 MG PO (12:04)
[2024-04-28 15:00] VITALS: BP 99/67
[2024-04-28] MEDS: CRESTOR 10 MG PO (17:29)
[2024-04-28] MEDS: LOVENOX 40 MG SC (17:29)
[2024-04-28 17:35] VITALS: BP 115/69
--- NOTE | 2024-04-28 20:15 | PTCARENOTE ---
Pt reports that she does not want IV fluids because it worsens her diarrhea and 'I'll be running to the bathroom all night long'. KIAN Carbone notified, and pt asked if she would be agreeable to lowering the IV fluid rate to 50 mL/hr. Pt agreeable to
having fluid rate lowered, order changed by KIAN Carbone to NS at 50 mL/hr.
[2024-04-28] MEDS: LEVAQUIN 150 IV (21:00)
[2024-04-28] MEDS: AMBIEN 10 MG PO (21:01)
[2024-04-28 23:13] VITALS: BP 97/54
[2024-04-29] MEDS: FLAGYL 500 MG 100 IV ×4 (00:03→23:36)
[2024-04-29] MEDS: DILAUDID 0.5 MG IV ×4 (01:53→19:55)
[2024-04-29 07:00] VITALS: BP 111/71
[2024-04-29] MEDS: CYMBALTA DELAYED RELEASE 60 MG PO (07:59)
[2024-04-29] MEDS: COZAAR 25 MG PO (07:59)
[2024-04-29] MEDS: ALDACTONE 50 MG PO (07:59)
[2024-04-29] MEDS: PEPCID 20 MG PO (08:00)
[2024-04-29] MEDS: TOPROL XL 100 MG PO (08:00)
[2024-04-29] MEDS: ZYRTEC 10 MG PO (08:00)
--- NOTE | 2024-04-29 09:25 | W.PN.HOSP.TC ---
Today's Communication/Plan
-
see bold
Assessment / Plan
Assessment / Plan
Gen: Continues to remain NAD, AAOx3.
Eyes: Continues to remain EOMI, PERRLA, no scleral icterus.
Neck: supple.
CV: RRR, +S1/S2, no m/r/g.
Resp: CTAB, no rales, wheezes, or rhonchi.
Abd: Remains +BS, soft, RLQ TTP, ND
Skin: No rashes.
Neuro: CN 2-12 intact, non-focal.
Psych: Normal mood and affect.
CT A/P: Persistent and progressive mild to moderate sigmoid diverticulitis. No perforation or abscess. The appendix is normal. No bowel obstruction. No obstructive uropathy.
Acute diverticulitis:
-cont Levaquin/Flagyl
-advanced to fulls
-pain control and antiemetics
-CRS following, no surgery indicated at this time
-Of note, C. difficile negative
-Due to lack of significant improvement will repeat CT scan of the abdomen pelvis with oral and IV contrast.
Essential HTN:
-cont BB/losartan/spironolactone with holding parameters
Obesity due to excess calories
FULL/Lovenox
Anticipated Discharge: > 48 hours
Subjective/Interval History
-
Date of Service: April 29, 2024
Patient states that she is 'not turning the corner.' Abdominal pain is similar to yesterday.
Objective Data
-
Vital Signs:
Vital Signs
Temp Pulse Resp BP Pulse Ox
98.4 F 67 20 111/71 95
04/29/24 07:00 04/29/24 07:00 04/29/24 07:00 04/29/24 07:00 04/29/24 07:00
I&O
04/28/24 04/29/24 04/30/24
06:59 06:59 06:59
Intake Total 1330 / 1330 1570 / 1570
Balance 1330 / 1330 1570 / 1570
--- NOTE | 2024-04-29 09:29 | W.PN.CRS1 ---
Today's Communication / Plan
-
Continue current measures.
Assessment/Plan
-
Sigmoid diverticulitis.
1. vitals and labs have been ok.
2. still complains of ongoing pain--however not very tender on exam.
3. would continue fulls for now and not advance yet.
4. continue antibiotics.
Subjective Data
Subjective Data
Date of Service: April 29, 2024
Admits pain 'unchanged' on her R.
Tolerating fulls.
Objective Data
-
Vital Signs
Temp Pulse Resp BP Pulse Ox
98.4 F 67 20 111/71 95
04/29/24 07:00 04/29/24 07:00 04/29/24 07:00 04/29/24 07:00 04/29/24 07:00
Intake & Output
04/28/24 04/29/24 04/30/24
06:59 06:59 06:59
Intake Total 1330 / 1330 1570 / 1570
Balance 1330 / 1330 1570 / 1570
Intake:
Oral fluids 1080 / 1080 1320 / 1320
IV piggybacks 250 / 250 250 / 250
Other:
Number of approximated MODERATE 2 2
amounts of urine
Lab Results
04/28/24 07:43
04/28/24 06:00
Physical Exam
-
General: No Acute Distress
Chest: Clear
Cardiovascular: Regular Rate & Rhythm
Abdomen: Tender (mild R sided)
[2024-04-29] MEDS: OMNIPAQUE 50 ML PO (10:55)
--- NOTE | 2024-04-29 13:21 | CM ---
Chart reviewed. Plan of care ongoing.
CRS following
Cont. IV abx
CM will cont to follow for d/c planning
Plan: Home; no anticipated needs
[2024-04-29 15:00] VITALS: BP 116/66
[2024-04-29] MEDS: LOVENOX 40 MG SC (17:36)
[2024-04-29] MEDS: CRESTOR 10 MG PO (17:36)
[2024-04-29] MEDS: NSS IV (18:18)
[2024-04-29] MEDS: TYLENOL 650 MG PO (21:36)
[2024-04-29] MEDS: AMBIEN 10 MG PO (22:34)
[2024-04-29] MEDS: LEVAQUIN 150 IV (22:34)
--- NOTE | 2024-04-29 22:55 | PTCARENOTE ---
Per change of shift report pt is refusing any further IV fluids. IV fluids capped during the day.
[2024-04-29 23:01] VITALS: BP 113/59
[2024-04-30 07:30] VITALS: BP 148/91
[2024-04-30] MEDS: TOPROL XL 100 MG PO (08:17)
[2024-04-30] MEDS: ZYRTEC 10 MG PO (08:17)
[2024-04-30] MEDS: ALDACTONE 50 MG PO (08:17)
[2024-04-30] MEDS: COZAAR 25 MG PO (08:17)
[2024-04-30] MEDS: FLAGYL 500 MG 100 IV (08:18)
[2024-04-30] MEDS: PEPCID 20 MG PO (08:18)
[2024-04-30] MEDS: CYMBALTA DELAYED RELEASE 60 MG PO (08:18)
[2024-04-30 08:26] LABS: % Basophils 0.6 % (0-2); % Eosinophils 5.4 % (0-6); % Immature Granulocytes 0.4 % (0-0.5); % Lymphocytes 24.7 % (20.5-51.1); % Neutrophils 58.9 % (42.2-75.2); Absolute Eosinophils 0.3 10^3/uL (0-0.7); Absolute Lymphocytes 1.1 10^3/uL (1.2-3.4); Absolute Monocytes 0.5 10^3/uL (0.1-0.6); Absolute Neutrophils 2.7 10^3/uL (1.4-6.5); Hematocrit 34.5 % (37.0-47.0); Hemoglobin 11.6 g/dL (12.0-16.0); Mean Corp Hgb Conc. 33.6 g/dL (33.0-37.0); Mean Corpuscular Hgb 32.4 pg (27.0-31.0); Mean Corpuscular Volume 96.4 fL (81.0-99.0); Nucleated Red Blood Cells % 0 %; Platelet Count 232 10^3/uL (130-400); Red Blood Cell Count 3.58 10^6/uL (4.20-5.40); Red Cell Dist. Width 13.2 % (11.5-14.5); White Blood Cell Count 4.6 10^3/uL (4.8-10.8)
--- NOTE | 2024-04-30 09:35 | W.PN.HOSP.TC ---
Today's Communication/Plan
-
see bold
Assessment / Plan
Assessment / Plan
Gen: remains NAD, AAOx3.
Eyes: EOMI, PERRLA, no scleral icterus.
Neck: supple.
CV: RRR, +S1/S2, no m/r/g.
Resp: CTAB, no rales, wheezes, or rhonchi.
Abd: continues to remain +BS, soft, RLQ TTP, ND
Skin: No rashes.
Neuro: remains CN 2-12 intact, non-focal.
Psych: Normal mood and affect.
CT A/P: Persistent and progressive mild to moderate sigmoid diverticulitis. No perforation or abscess. The appendix is normal. No bowel obstruction. No obstructive uropathy.
CT A/P (04/29/24, repeat): There is persistent sigmoid diverticulitis, overall similar in appearance to recent prior CT. There is no evidence of perforation.
Acute diverticulitis:
-cont Levaquin/Flagyl
-advanced to fulls
-pain control and antiemetics
-CRS following, no surgery indicated at this time
-Of note, C. difficile negative
-repeat CT A/P without change/perforation
-c/s ID at the request of Dr. Marin
Essential HTN:
-cont BB/losartan/spironolactone with holding parameters
Obesity due to excess calories
FULL/Lovenox
Anticipated Discharge: > 48 hours
Subjective/Interval History
-
Date of Service: April 30, 2024
No change in abdominal pain.
Objective Data
-
Labs:
Laboratory Results
04/30/24
08:14
WBC 4.6 L
Hgb 11.6 L
Hct 34.5 L
Plt Count 232
Vital Signs:
Vital Signs
Temp Pulse Resp BP Pulse Ox
98.1 F 72 18 148/91 97
04/30/24 07:30 04/30/24 07:30 04/30/24 07:30 04/30/24 07:30 04/30/24 07:30
I&O
04/29/24 04/30/24 05/01/24
06:59 06:59 06:59
Intake Total 1570 / 1570 1550 / 1550 240 / 240
Balance 1570 / 1570 1550 / 1550 240 / 240
--- NOTE | 2024-04-30 09:47 | W.PN.GS2 ---
Addendum entered and electronically signed by Jorden Randall MD 04/30/24 17:56:
Patient seen and examined independently of surgical COBOL DEVELOPER this evening. Agree with documented progress note.
Patient reports persistent pain, fatigue and loose stools
Pain has improved since admission but still significant enough that is uncomfortable
AFVSS
ABD: Soft, nondistended, tender to palpation with voluntary guarding suprapubic and right lower quadrant as well as rebound in these locations
A/P: 58-year-old female with sigmoid diverticulitis with persistent pain but no evidence of bowel perforation, abscess on follow-up CT imaging
Objectively stable and some improvement with current treatment course (CRP, WBC, CT a/p)
Subjectively still with considerable symptoms
No indications for urgent surgical management (sepsis, free perforation, peritonitis, etc.)
Continue current supportive care and colorectal surgical service will return on Thursday to have further discussions with patient regarding potential timing of/consideration of sigmoidectomy if no further subjective improvement
Original Note:
Today's Communication / Plan
-
Continue abx
Assessment / Plan
-
58 yo female presenting with sigmoid diverticulitis noted on CT 04/24. Repeat CT on 04/29 with persistent diverticulitis similar to initial CT. No abscess.
AFVSS
Mild leukopenia
Symptoms persist, not feeling better or worse. No appetite but tolerating liquids thus far without increased symptoms
--ID consulted for ABX management
--Continue FLD for now
--Medical management as per primary team
Subjective Data
-
Date of Service: April 30, 2024
Patient seen and examined at bedside. Notes she is fatigued. Continues with diarrhea, denies blood in stools. No appetite. Denies n/v.
Objective Data
-
Intake and Output
04/29/24 04/30/24 05/01/24
06:59 06:59 06:59
Intake Total 1570 / 1570 1550 / 1550 240 / 240
Balance 1570 / 1570 1550 / 1550 240 / 240
Intake:
Oral fluids 1320 / 1320 1200 / 1200 240 / 240
IV piggybacks 250 / 250 350 / 350
Other:
Number of approximated MODERATE 2 3 1
amounts of urine
Vital Signs
Temp Pulse Resp BP Pulse Ox
98.1 F 72 18 148/91 97
04/30/24 07:30 04/30/24 07:30 04/30/24 07:30 04/30/24 07:30 04/30/24 07:30
Lab Results
04/30/24 08:14
04/28/24 06:00
Calcium 8.5 mg/dl (8.4-10.2) 04/28/24 06:00
Magnesium 1.4 mg/dl (1.6-2.3) L 04/25/24 06:41
Total Bilirubin 0.7 mg/dl (0.2-1.3) 04/24/24 21:27
AST 33 U/L (14-36) 04/24/24 21:27
ALT 33 U/L (0-35) 04/24/24 21:27
Alkaline Phosphatase 86 U/L (38-126) 04/24/24 21:27
Total Protein 6.9 g/dl (6.3-8.2) 04/24/24 21:27
Albumin 4.5 g/dl (3.5-5.0) 04/24/24 21:27
Physical Exam
-
NAD
ABD softly distended, mild to mod tenderness to the RLQ into the pelvis
[2024-04-30] MEDS: NSS 1000 IV (09:58)
[2024-04-30] MEDS: ZOFRAN 4 MG IV ×2 (10:32→16:32)
[2024-04-30 15:20] VITALS: BP 121/70
--- NOTE | 2024-04-30 15:22 | CON.ID ---
Consultation
-
Date/Time Consultation Requested: 04/29/24 16:30
Date/Time Consultation Performed: 04/30/24 15:23
Requesting Provider: Dr Coyle
Performing Provider: Dr Chawla
Reason for Consultation: diverticulitis
Chief Complaint / Past History
Chief Complaint
Abdominal pain
History of Present Illness
Ms Billy is a 58 year old female with history of diverticulitis presenting here 04/25 for recurrent abdomial pain. Issues began 04/07 with abdominal pain, diagnosed with sigmoid diverticulitis, uncomplicated, treated with augmentin x10 days
(finished 04/17), symptoms began to relapse after completign the course with abdominal pain and diarrhea, she had 10 more days of augmentin and during this course reported no imrpovement in abdominal pain or diarrhea, developed low grade Ts, no
chills. Of note + cologuard and pending outpatient colonosocpy.
Represented here 04/25 and has been afebrile since, bp overall stable, wbc on arrival 9.9 today 4.6, hgb 11.6, plt 232, L shift was present on arrival and has now resolved, cr 0.7, crp on arrival <5 on 04/28 170 and yesteday 80, ct 04/24 with IV
contrast: Persistent and progressive mild to moderate sigmoid diverticulitis. No perforation or abscess, 04/29 CT ab/p with IV and oral contrast: persistent diverticulitis, C diff negative, stool culture negative, patient has been on
levofloxacin/metronidazole x6 days, ID is consulted for assistance with management.
Past History
Additional Past Medical History:
HTN, HLD
Additional Past Surgical History:
, Gynocological and Orthopedic (Back surgery)
Allergy History:
topiramate [From Topamax] Allergy (Intermediate, Verified 04/07/24 11:24)
Unknown
tetracycline Allergy (Verified 04/07/24 11:24)
FULL BODY RASH
cats Allergy (Uncoded 11/14/21 14:55)
runny nose
seasonal Allergy (Uncoded 11/14/21 14:55)
runny nose
Medications Reviewed: Yes
Social History
Tobacco: Non-Smoker
Alcohol: None
Drug: None
Family History
Family History: Not Pertinent
Review of Systems
Review of Systems
General: Negative Fever or Chills
All systems: All other systems were reviewed and were negative
Vital Signs
Temp Pulse Resp BP Pulse Ox
98.1 F 72 18 148/91 97
04/30/24 07:30 04/30/24 07:30 04/30/24 07:30 04/30/24 07:30 04/30/24 08:15
Physical Exam
Physical Exam
Constitutional: No Acute Distress
Cardiovascular: Regular Rate and S1/S2; Negative Murmur or Rub
Pulmonary: Clear and Symmetric; Negative Wheezes, Rales or Rhonchi
Gastrointestinal: Soft, Non Tender, Non Distended and Normal Bowel Sounds
Skin: Warm and Dry; Negative Rash or Jaundice
Lab / Diagnostic Study Results
04/30/24 08:14
04/28/24 06:00
Abs Immat Gran (auto) 0.0 10^3/uL (0-0.05) 04/30/24 08:14
Absolute Neuts (auto) 2.7 10^3/uL (1.4-6.5) 04/30/24 08:14
Absolute Lymphs (auto) 1.1 10^3/uL (1.2-3.4) L 04/30/24 08:14
Absolute Monos (auto) 0.5 10^3/uL (0.1-0.6) 04/30/24 08:14
Absolute Basos (auto) 0.0 10^3/uL (0-0.2) 04/30/24 08:14
Immature Gran % 0.4 % (0-0.5) 04/30/24 08:14
Neutrophils % 58.9 % (42.2-75.2) 04/30/24 08:14
Lymphocytes % 24.7 % (20.5-51.1) 04/30/24 08:14
Monocytes % 10.0 % (1.7-9.3) H 04/30/24 08:14
Eosinophils % 5.4 % (0-6) 04/30/24 08:14
Basophils % 0.6 % (0-2) 04/30/24 08:14
Lactic Acid 1.1 mmol/L (0.7-2.0) 04/24/24 21:27
C-Reactive Protein 80.70 mg/L (0.0-10.00) H 04/29/24 06:16
Microbiology Results
Micro:
04/27/24 14:37 Salmonella/Shigella Culture - Final
Feces/Stool No Salmonella, Shigella, Aeromonas or Plesiomonas species
isolated.
Campylobacter Culture - Final
No Campylobacter species isolated.
Shiga Toxin Test - Pending
04/27/24 14:37 C. difficile GDH Antigen & Toxins - Final
Feces/Stool Negative for toxigenic C.difficile
Assessment / Plan
Recurrent Diverticulitis
Obesity
- improvment in pain from 02/08 to 08/08, improving crp, still with malaise and poor appetite; counseled expect 48-72 hours after any medication change to see clinical improvement
- c difficile and routine stool cultures negative
- note 2 previous courses of augmentin
- agree with levofloxacin/metronidazole - switched to oral; changed to BID dosing on the metronidazole given trouble with metallic taste
- some partial improvement in CRP, stable inflammatory changes on CT scan
- recheck CRP thursday
- add fluconazole 400 mg PO qday
- check QTc now and in the AM
[2024-04-30] MEDS: FLAGYL 500 MG PO (15:43)
[2024-04-30] MEDS: CRESTOR 10 MG PO (17:00)
[2024-04-30] MEDS: LOVENOX 40 MG SC (17:00)
[2024-04-30] MEDS: DILAUDID 0.5 MG IV ×2 (17:14→22:09)
[2024-04-30] MEDS: DIFLUCAN 400 MG PO (20:42)
[2024-04-30] MEDS: LEVAQUIN 750 MG PO (20:42)
[2024-04-30] MEDS: AMBIEN 10 MG PO (22:03)
[2024-04-30 23:01] VITALS: BP 133/84
[2024-05-01] MEDS: MONISTAT 7 VAGINAL CREAM 1 APPLIC VAG ×2 (00:31→21:07)
[2024-05-01] MEDS: PEPCID 20 MG PO (07:43)
[2024-05-01] MEDS: ZYRTEC 10 MG PO (07:43)
[2024-05-01] MEDS: ALDACTONE 50 MG PO (07:43)
[2024-05-01] MEDS: CYMBALTA DELAYED RELEASE 60 MG PO (07:43)
[2024-05-01] MEDS: COZAAR 25 MG PO (07:43)
[2024-05-01] MEDS: TOPROL XL 100 MG PO (07:44)
[2024-05-01] MEDS: DIFLUCAN 400 MG PO (07:44)
[2024-05-01] MEDS: FLAGYL 500 MG PO ×2 (07:44→20:25)
[2024-05-01 07:46] VITALS: BP 115/72
[2024-05-01] MEDS: NSS IV (07:50)
[2024-05-01] MEDS: DILAUDID 0.5 MG IV ×2 (09:07→17:13)
--- NOTE | 2024-05-01 10:38 | W.PN.HOSP.TC ---
Today's Communication/Plan
-
see bold
Assessment / Plan
Assessment / Plan
Gen: Continues to remain NAD, AAOx3.
Eyes: EOMI, PERRLA, no scleral icterus.
Neck: supple.
CV: RRR, +S1/S2, no m/r/g.
Resp: CTAB, no rales, wheezes, or rhonchi.
Abd: +BS, soft, NT to light-mod palpation, ND
Skin: No rashes.
Neuro: Continues to remain CN 2-12 intact, non-focal.
Psych: Normal mood and affect.
CT A/P: Persistent and progressive mild to moderate sigmoid diverticulitis. No perforation or abscess. The appendix is normal. No bowel obstruction. No obstructive uropathy.
CT A/P (04/29/24, repeat): There is persistent sigmoid diverticulitis, overall similar in appearance to recent prior CT. There is no evidence of perforation.
Acute diverticulitis:
-cont Levaquin/Flagyl as per ID
-advanced to LR diet as per surgery
-pain control and antiemetics
-CRS following, no surgery indicated at this time
-Of note, C. difficile negative
-repeat CT A/P without change/perforation
Essential HTN:
-cont BB/losartan/spironolactone with holding parameters
Obesity due to excess calories
FULL/Lovenox
Anticipated Discharge: 24 - 48 hours
Subjective/Interval History
-
Date of Service: May 01, 2024
Abdominal pain improved from yesterday.
Objective Data
-
Vital Signs:
Vital Signs
Temp Pulse Resp BP Pulse Ox
97.5 F 68 20 115/72 96
05/01/24 07:46 05/01/24 07:46 05/01/24 07:46 05/01/24 07:46 05/01/24 07:46
I&O
04/30/24 05/01/24 05/02/24
06:59 06:59 06:59
Intake Total 1550 / 1550 1120 / 1520 400 / 400
Balance 1550 / 1550 1120 / 1520 400 / 400
--- NOTE | 2024-05-01 12:15 | W.PN.GS2 ---
Addendum entered and electronically signed by Jorden Randall MD 05/01/24 12:26:
Patient seen and examined with surgical UNIONMELT OPERATOR. Agree with documented progress note with additions noted here.
Patient's son/family at bedside.
Patient is sitting up comfortably in hospital bed.
States subjective improvement over the last 24 hours with some return of her appetite. Continues with generally loose stools.
AFVSS
ABD: Soft, obese, mild tenderness palpation suprapubic and right lower quadrant but less guarding today.
A/P: 58-year-old female with sigmoid diverticulitis
Clinical improvement over the last 24 hours
Low residue dietary challenge
Antibiotics per ID recommendations
[facility]CRS will return to follow patient tomorrow
Original Note:
Today's Communication / Plan
-
LRD
Assessment / Plan
-
58 yo female presenting with sigmoid diverticulitis noted on CT 04/24. Repeat CT on 04/29 with persistent diverticulitis similar to initial CT. No abscess.
AFVSS
Starting to feel a little better, appetite returning and pain improving slowly
Diarrhea secondary to diverticulitis/inflammation persists, c-diff negative
--ID following for ABX management
--Advance to LRD
--CBC in am
--Medical management as per primary team
Subjective Data
-
Date of Service: May 01, 2024
Patient seen and examined at bedside with Dr. Randall. Denies n/v. Tolerating fulls and appetite is returning. She would like to try solid foods now. Pain gradually improving. Still with loose stools.
Objective Data
-
Intake and Output
04/30/24 05/01/24 05/02/24
06:59 06:59 06:59
Intake Total 1550 / 1550 1120 / 1520 400 / 400
Balance 1550 / 1550 1120 / 1520 400 / 400
Intake:
Oral fluids 1200 / 1200 720 / 1120 400 / 400
IV fluids (Total) 300 / 300
IV piggybacks 350 / 350 100 / 100
Other:
Number of approximated MODERATE 3 4 2
amounts of urine
Vital Signs
Temp Pulse Resp BP Pulse Ox
97.5 F 68 20 115/72 96
05/01/24 07:46 05/01/24 07:46 05/01/24 07:46 05/01/24 07:46 05/01/24 07:46
Lab Results
04/30/24 08:14
04/28/24 06:00
Calcium 8.5 mg/dl (8.4-10.2) 04/28/24 06:00
Magnesium 1.4 mg/dl (1.6-2.3) L 04/25/24 06:41
Total Bilirubin 0.7 mg/dl (0.2-1.3) 04/24/24 21:27
AST 33 U/L (14-36) 04/24/24 21:27
ALT 33 U/L (0-35) 04/24/24 21:27
Alkaline Phosphatase 86 U/L (38-126) 04/24/24 21:27
Total Protein 6.9 g/dl (6.3-8.2) 04/24/24 21:27
Albumin 4.5 g/dl (3.5-5.0) 04/24/24 21:27
Physical Exam
-
NAD
ABD ND, mild tenderness to the right suprapubic area/pelvis
--- NOTE | 2024-05-01 13:42 | W.PN.ID1 ---
Date of Service
Date of Service: May 01, 2024
Today's Communication
qtc acceptable
continue current therapies
Assessment / Plan
Recurrent Diverticulitis
Obesity
- improvment in pain from 02/08 to 08/08, improving crp, still with malaise and poor appetite; counseled expect 48-72 hours after any medication change to see clinical improvement
- c difficile and routine stool cultures negative
- note 2 previous courses of augmentin
- agree with levofloxacin/metronidazole
- some partial improvement in CRP, stable inflammatory changes on CT scan
- recheck CRP thursday
- c/w fluconazole 400 mg PO qday
- check QTcs acceptable
Chief Complaint
-: Other (diverticulitis)
Subjective / Review of Systems
afebrile
bp stable
tolerating current therapies
improved abdominal pain
now on standard diet
Vital Signs / Physical Exam
Vital Signs
Vital Signs
Temp Pulse Resp BP Pulse Ox
97.5 F 68 20 115/72 96
05/01/24 07:46 05/01/24 07:46 05/01/24 07:46 05/01/24 07:46 05/01/24 07:46
Physical Exam
Constitutional: No Acute Distress
Cardiovascular: Regular Rate and S1/S2; Negative Murmur or Rub
Pulmonary: Clear and Symmetric; Negative Wheezes or Rales
Gastrointestinal: Soft, Non Tender, Non Distended and Normal Bowel Sounds
Skin: Warm and Dry; Negative Rash or Jaundice
Objective Data
Lab Data
Lab Results
04/30/24 08:14
04/28/24 06:00
Estimated Creat Clear 95 ml/min 04/28/24 06:00
Lactic Acid 1.1 mmol/L (0.7-2.0) 04/24/24 21:27
Total Bilirubin 0.7 mg/dl (0.2-1.3) 04/24/24 21:27
AST 33 U/L (14-36) 04/24/24 21:27
ALT 33 U/L (0-35) 04/24/24 21:27
Alkaline Phosphatase 86 U/L (38-126) 04/24/24 21:27
C-Reactive Protein 80.70 mg/L (0.0-10.00) H 04/29/24 06:16
Most recent labs reviewed.
Micro Results:
04/27/24 14:37 Salmonella/Shigella Culture - Final
Feces/Stool No Salmonella, Shigella, Aeromonas or Plesiomonas species
isolated.
Campylobacter Culture - Final
No Campylobacter species isolated.
Shiga Toxin Test - Pending
04/27/24 14:37 C. difficile GDH Antigen & Toxins - Final
Feces/Stool Negative for toxigenic C.difficile
[2024-05-01 15:34] VITALS: BP 114/72
[2024-05-01] MEDS: CRESTOR 10 MG PO (17:13)
[2024-05-01] MEDS: LOVENOX 40 MG SC (17:13)
[2024-05-01] MEDS: TYLENOL 650 MG PO (17:13)
[2024-05-01] MEDS: LEVAQUIN 750 MG PO (20:25)
[2024-05-01] MEDS: AMBIEN 10 MG PO (21:01)
[2024-05-01 23:17] VITALS: BP 108/65
[2024-05-02] MEDS: DILAUDID 0.5 MG IV (03:07)
[2024-05-02] MEDS: DIFLUCAN 400 MG PO (07:31)
[2024-05-02] MEDS: FLAGYL 500 MG PO (07:32)
[2024-05-02] MEDS: CYMBALTA DELAYED RELEASE 60 MG PO (07:32)
[2024-05-02] MEDS: ZYRTEC 10 MG PO (07:32)
[2024-05-02] MEDS: COZAAR 25 MG PO (07:32)
[2024-05-02] MEDS: TOPROL XL 100 MG PO (07:33)
[2024-05-02] MEDS: ALDACTONE 50 MG PO (07:33)
[2024-05-02] MEDS: PEPCID 20 MG PO (07:33)
[2024-05-02 07:38] VITALS: BP 108/60
--- NOTE | 2024-05-02 08:58 | W.PN.HOSP.TC ---
Today's Communication/Plan
-
Cleared by ID and colorectal surgery for discharge today
Assessment / Plan
Assessment / Plan
CT A/P: Persistent and progressive mild to moderate sigmoid diverticulitis. No perforation or abscess. The appendix is normal. No bowel obstruction. No obstructive uropathy.
CT A/P (04/29/24, repeat): There is persistent sigmoid diverticulitis, overall similar in appearance to recent prior CT. There is no evidence of perforation.
Acute diverticulitis:
-pain control and antiemetics
-CRS following, no surgery indicated at this time
-Of note, C. difficile negative
-Repeat CT A/P without change/perforation
-Improving on Levaquin/Flagyl/fluconazole
-Cleared by ID and colorectal surgery for discharge on the above regimen for 7 more days, QTc acceptable
-Apparently patient is on Nuvigil and Adderall outpatient, this is not listed on her home meds. She needs to hold these medications while on her antibiotics.
Essential HTN:
-cont BB/losartan/spironolactone with holding parameters
Obesity due to excess calories
DVT prophylaxis�subcu Lovenox
Full code
Physical exam
Gen: Continues to remain NAD, AAOx3.
Eyes: EOMI, PERRLA, no scleral icterus.
Neck: supple.
CV: RRR, +S1/S2, no m/r/g.
Resp: CTAB, no rales, wheezes, or rhonchi.
Abd: +BS, soft, NT to light-mod palpation, ND
Skin: No rashes.
Neuro: Continues to remain CN 2-12 intact, non-focal.
Psych: Normal mood and affect.
Anticipated Discharge: Today
Subjective/Interval History
-
Date of Service: May 02, 2024
Patient reports her abdominal pain is much improved. No nausea, no vomiting. Her stools are loose, no blood. No chest pain, no fever.
Objective Data
-
Labs:
Laboratory Results
05/02/24
08:39
WBC Pending
Hgb Pending
Hct Pending
Plt Count Pending
Vital Signs:
Vital Signs
Temp Pulse Resp BP Pulse Ox
97.8 F 60 18 108/60 95
05/02/24 07:38 05/02/24 07:38 05/02/24 07:38 05/02/24 07:38 05/02/24 07:43
I&O
05/01/24 05/02/24 05/03/24
06:59 06:59 06:59
Intake Total 1120 / 1520 1720 / 1720
Balance 1120 / 1520 1720 / 1720
[2024-05-02 09:20] LABS: Hematocrit 38.7 % (37.0-47.0); Hemoglobin 12.6 g/dL (12.0-16.0); Mean Corp Hgb Conc. 32.6 g/dL (33.0-37.0); Mean Corpuscular Hgb 31.4 pg (27.0-31.0); Mean Corpuscular Volume 96.5 fL (81.0-99.0); Mean Platelet Volume 9.3 fL (7.4-10.4); Platelet Count 286 10^3/uL (130-400); Red Blood Cell Count 4.01 10^6/uL (4.20-5.40); Red Cell Dist. Width 13.4 % (11.5-14.5); White Blood Cell Count 6.4 10^3/uL (4.8-10.8)
--- NOTE | 2024-05-02 09:55 | W.PN.CRS1 ---
Today's Communication / Plan
-
continue low residue
dispo per primary team
Assessment/Plan
-
58 yo female presenting with sigmoid diverticulitis noted on CT 04/24. Repeat CT on 04/29 with persistent diverticulitis similar to initial CT. No abscess.
AFVSS, WBC 6.4
Improved since admission
Diarrhea secondary to diverticulitis/inflammation persists, c-diff negative/stool cultures negative
--ID following for ABX management
--Continue LRD
--Leukocytosis resolved
--Medical management as per primary team
--Okay for discharge from our perspective when medically cleared. Antibiotics per ID. Will need eventual colonoscopy as an outpatient. Will arrange at follow up office visit with Dr. Tripathi. No further imaging at this time from our perspective.
Subjective Data
Subjective Data
Date of Service: May 02, 2024
Patient states she is overall improved since admission. She has no vomiting, only some nausea due to the metallic taste in her mouth from flagyl. She has been tolerating a diet. She has bowel movements (loose) and flatus.
Objective Data
-
Vital Signs
Temp Pulse Resp BP Pulse Ox
97.8 F 60 18 108/60 95
05/02/24 07:38 05/02/24 07:38 05/02/24 07:38 05/02/24 07:38 05/02/24 07:43
Intake & Output
05/01/24 05/02/24 05/03/24
06:59 06:59 06:59
Intake Total 1120 / 1520 1720 / 1720
Balance 1120 / 1520 1720 / 1720
Intake:
Oral fluids 720 / 1120 1720 / 1720
IV fluids (Total) 300 / 300
IV piggybacks 100 / 100
Other:
Number of approximated MODERATE 4 2
amounts of urine
Lab Results
05/02/24 08:39
04/28/24 06:00
Physical Exam
-
General: No Acute Distress and AOx3
Abdomen: Soft, Non Distended and Tender (mild RLQ/suprapubic)
Skin: Warm and Dry
--- NOTE | 2024-05-02 10:18 | W.PN.ID1 ---
Date of Service
Date of Service: May 02, 2024
Today's Communication
- c/w levofloxacin/metronidazole - continue for 7 more days
- c/w fluconazole 400 mg PO qday - for 7 more days
- if abdominal pain not resolved by am she will contact me for a refill
- probiotics outpatient
- stable for dc from ID perspective, follow up with colorectal surgery, follow up with me PRN
Assessment / Plan
Recurrent Diverticulitis
Obesity
- notably improved pain, markedly improved crp, eating
- note 2 previous courses of augmentin
- c/w levofloxacin/metronidazole - continue for 7 more days
- c/w fluconazole 400 mg PO qday - for 7 more days
- if abdominal pain not resolved by am she will contact me for a refill
- probiotics outpatient
- stable for dc from ID perspective, follow up with colorectal surgery, follow up with me PRN
Chief Complaint
-: Other (diverticulitis)
Subjective / Review of Systems
afebrile
bp stable
no events overnight
tolerating a diet, and reports markedly improved abdominal pain
Vital Signs / Physical Exam
Vital Signs
Vital Signs
Temp Pulse Resp BP Pulse Ox
97.8 F 60 18 108/60 95
05/02/24 07:38 05/02/24 07:38 05/02/24 07:38 05/02/24 07:38 05/02/24 07:43
Physical Exam
Constitutional: No Acute Distress
Cardiovascular: Regular Rate
Pulmonary: Symmetric and Non Labored
Gastrointestinal: Soft, Tender (minimal in the lower quadrants) and Non Distended
Skin: Warm and Dry; Negative Rash or Jaundice
Objective Data
Lab Data
Lab Results
05/02/24 08:39
04/28/24 06:00
Estimated Creat Clear 95 ml/min 04/28/24 06:00
Lactic Acid 1.1 mmol/L (0.7-2.0) 04/24/24 21:
Total Bilirubin 0.7 mg/dl (0.2-1.3) 04/24/24 21:
AST 33 U/L (14-36) 04/24/24:
ALT 33 U/L (0-35) 04/24/24 21:
Alkaline Phosphatase 86 U/L (38-126) 04/24/24 21:
C-Reactive Protein 30.20 mg/L (0.0-10.00) H 05/02/24 08:39
Most recent labs reviewed.
crp 170 to 80 to 30
Micro Results:
04/27/24 14:37 Salmonella/Shigella Culture - Final
Feces/Stool No Salmonella, Shigella, Aeromonas or Plesiomonas species
isolated.
Campylobacter Culture - Final
No Campylobacter species isolated.
Shiga Toxin Test - Final
No E. coli Shiga Toxin 1 or 2 detected.
04/27/24 14:37 C. difficile GDH Antigen & Toxins - Final
Feces/Stool Negative for toxigenic C.difficile
Care Review
Plan reviewed with: Physician
--- NOTE | 2024-05-02 12:07 | W.DCSUMMARY ---
Discharge Summary
Discharge Data
Date of Admission: 04/25/24
Date of Discharge: 05/02/24
-
Pending Results: No
Hospital Course
Discharge diagnosis:
Acute recurrent diverticulitis
Vaginal candidiasis
Essential hypertension
Obesity due to excess calories
Consults: Colorectal surgery, ID
CT abdomen and pelvis:
There is persistent sigmoid diverticulitis, overall similar in appearance to recent prior CT. There is no evidence of perforation.
Hospital course:
58-year-old female with a past medical history of hypertension and obesity was admitted for recurrent sigmoid diverticulitis. She was initially seen in the ER on 04/07/2024, and treated with a full course of Augmentin. She was admitted on
04/25/2024 for recurrent abdominal pain. Patient was seen in conjunction with ID. She was treated with levofloxacin, Flagyl. She also had a yeast infection, and was treated with miconazole nitrate vaginally as well as fluconazole.
Patient was seen in conjunction with colorectal surgery. Colorectal surgery recommends outpatient follow-up for colonoscopy.
After a prolonged hospital course, patient's abdominal pain improved. She tolerated a diet. Her QTc was acceptable. She is medically stable and cleared by both colorectal surgery and ID for discharge on levofloxacin, Flagyl, and fluconazole for
an additional 7 days. I received a call from her pharmacy stating that patient is also on Adderall and Nuvigil. Patient has been instructed to hold her Adderall and Nuvigil while she is on levofloxacin, Flagyl, and fluconazole.
She needs to follow-up with her primary care doctor in 1 week, ID in 2-3 weeks, and colorectal surgery in 4-6 weeks.
Disposition: Home self-care
Discharge planning: Required 45 minutes
Discharge Plan
-
Patient Disposition: Home (Routine Discharge)
Discharge Diagnosis/Procedures: Acute diverticulitis, abdominal pain
Condition: Fair
Diet: Low Fiber
Activity: As tolerated
Driving Restrictions: As prior to admission
Activity Restrictions/Additional Instructions:
Follow-up with your primary care doctor in 1 week, and the infection doctor in 2-3 weeks.
Will need eventual colonoscopy as an outpatient. Will arrange at follow up office visit with Dr. Tripathi.
Referrals:
Allen Mckeon MD [Family Provider] - in one week
Rody Chawla MD [Active] - in two to three weeks
Prescriptions:
New
hydromorphone [Dilaudid] 2 mg tablet
2 mg PO Q6H PRN (Reason: Pain) Qty: 20 0RF
fluconazole 200 mg Tablet
400 mg PO DAILY 7 Days Qty: 14 0RF
miconazole nitrate 2 % Cream
1 applic vaginal HS 10 Days Qty: 45 0RF
metronidazole 500 mg Tablet
500 mg PO BID 7 Days Qty: 14 0RF
levofloxacin 750 mg Tablet
750 mg PO DAILY@2000 7 Days Qty: 7 0RF
Lactobacillus acidophilus 25 million cell capsule
25,000,000 cell PO DAILY 10 Days Qty: 10 0RF
Continued
metoprolol succinate 50 MG tablet extended release 24 hr
100 mg PO DAILY
szzqesf-hcfbngrzliykd-rknqimkt 1 TABLET tablet
2 tab PO DAILY
cetirizine 10 MG tablet
10 mg PO DAILY
famotidine 20 MG tablet
20 mg PO DAILY
losartan 25 MG tablet
25 mg PO DAILY
spironolactone 50 MG tablet
50 mg PO DAILY
rosuvastatin 10 MG tablet
10 mg PO DAILY
duloxetine 60 MG capsule,delayed release(DR/EC)
60 mg PO DAILY
zolpidem [Ambien] 10 mg Tablet
10 mg PO HS
Discontinued
amoxicillin-pot clavulanate 875-125 mg tablet
1 tab PO BID 10 Days Qty: 20 0RF
Discharge Orders:
Discharge Patient (As Directed); Ordered 05/02/24
Ordered By: Reza Do
Discharge Date and Time
Discharge Date/Time: 05/02/24 15:10
Print Language: SWISS
[2024-05-02 13:53] VITALS: BP 123/84
--- NOTE | 2024-05-02 14:12 | CM ---
Chart reviewed. Pt d/c today
No CM needs at this time
Plan: Home; no needs
== END 2024-05-02 15:10 | disposition home or self-care (01) | DRG 392 ==
LOC: 4 WEST ACU 00:16
PROVIDERS: Clinical Nurse Specialist Family Health; Internal Medicine; Registered Nurse; Surgery; ADMITTING PHYSICIAN Internal Medicine; ATTENDING PHYSICIAN Family Medicine; CONSULT PHYSICIAN Student in an Organized Health Care Education/Training Program; EMERGENCY PHYSICIAN Emergency Medicine; FAMILY PHYSICIAN Internal Medicine; OTHER PHYSICIAN Surgery
DX: K57.32 Diverticulitis of large intestine without perforation or abscess without bleeding (principal); I10 Essential (primary) hypertension; E78.00 Pure hypercholesterolemia, unspecified; G43.909 Migraine, unspecified, not intractable, without status migrainosus; G47.419 Narcolepsy without cataplexy; B37.31 Acute candidiasis of vulva and vagina; E66.09 Other obesity due to excess calories; Z68.35 Body mass index [BMI] 35.0-35.9, adult; Z86.718 Personal history of other venous thrombosis and embolism; Z88.1 Allergy status to other antibiotic agents; Z79.899 Other long term (current) drug therapy; Z79.52 Long term (current) use of systemic steroids; Z79.2 Long term (current) use of antibiotics
CPT/HCPCS: 74177; 80048; 80053; 83605; 83690; 83735; 85025; 85027; 86140; 87045; 87046; 87324; 87427; 87449; 93005; 96361; 96365; 96375; 96376; 99285; Q9967

== ENCOUNTER 2024-06-30 06:33 | Day surgery (SDC) | payer BC, SELFPAY | END 2024-06-30 09:04 | disposition home or self-care (01) | LOC: GI 06:33 | PROVIDERS: ATTENDING PHYSICIAN Internal Medicine Gastroenterology | DX: R19.5 Other fecal abnormalities (principal); K57.30 Diverticulosis of large intestine without perforation or abscess without bleeding; K62.89 Other specified diseases of anus and rectum; K63.89 Other specified diseases of intestine; K52.9 Noninfective gastroenteritis and colitis, unspecified | CPT/HCPCS: 45380; 88305 ==

== ENCOUNTER → 2024-08-01 17:36 | Outpatient (REF) | payer BC, SELFPAY | LOC: WDC 17:36 | PROVIDERS: ATTENDING PHYSICIAN Obstetrics & Gynecology Gynecology; FAMILY PHYSICIAN Internal Medicine | DX: Z12.31 Encounter for screening mammogram for malignant neoplasm of breast (principal); Z12.39 Encounter for other screening for malignant neoplasm of breast | CPT/HCPCS: 77063; 77067 ==